=== PATIENT | male | born 1965 | race Caucasian/White ===

== ENCOUNTER 2016-06-16 09:05 | Outpatient (CLI) | payer BC, MEDICAID ==
[~2016-06-16] VITALS: Ht 172.7 cm; Wt 90.7 kg
[2016-06-16] MEDS ORDERED: TRIAMCINOLONE ACET (KENALOG-40) 40 MG/ML 1 ML VIAL ONE (09:11)
[2016-06-16] MEDS ORDERED: BUPIVACAINE 0.25% 30 ML (SENSORCAINE) VIAL ONE (09:11)
[2016-06-16] MEDS ORDERED: BUPIVACAINE 0.5% 30 ML (SENSORCAINE) VIAL ONE (09:11)
[2016-06-16] MEDS ORDERED: LIDOCAINE 1% INJ 20 ML (XYLOCAINE) VIAL ONE (09:11)
--- OUTSIDE RECORDS SUMMARY | 2016-06-16 09:12 | XMS REPORT ---
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 Unknown Non Drug Allergy Dec, Unknown SOCIAL HISTORY No smoking Hx information available PLAN OF CARE VITAL SIGNS Height 65.0 in 2015-12-23 Weight 188.2 lbs 2015-12-23 Heart Rate 82 bpm 2015-12-23 Respiratory Rate 18 2015-12-23 BMI 31.31 kg/m2 2015-12-23 Blood pressure systolic 124 mmHg 2015-12-23 Blood pressure diastolic 82 mmHg 2015-12-23 MEDICATIONS Medication Instructions Dosage Frequency Start Date End Date Duration Status Baclofen 20 mg Orally every 8 hrs 1 tablet with food or milk 8h Dec, 30 day(s) Active PredniSONE 10 mg Orally Once a day 6 tabs x3, 4 tabs x3, 2 tabs x 3, 1 tab x 3 24h Dec, 12 days Active Diclofenac Sodium 50 mg Orally Three times a day 1 tablet 8h Dec, Active Neurontin 300 MG Orally Three times a day 1 tablet 8h Active RESULTS No Results PROCEDURES Procedure Date Ordered Related Diagnosis Body Site Office Visit, Est Pt., Level 3 Dec 23, 2015 IMMUNIZATIONS No Known Immunizations
[2016-06-16 09:21] VITALS: BP 145/102
[2016-06-16 09:43] VITALS: BP 148/111
--- NOTE | 2016-06-16 12:20 | Pain Medicine-Procedure ---
Procedure Pre-Op/Post-Op Diagnosis Diagnosis: Spondylosis without myelopathy, lumbar Indications for Operation Low back and hip pain Attending Surgeon Robert Procedure Date of Service: Jun 16, 2016 Procedure: Fluoroscopic guided left Medial Branch Block of L3 to sacral ala and a sacroiliac joint injections PROCEDURE IN DETAIL: After obtaining informed consent from the patient, the patient's chart was reviewed. The patient was then brought to the procedure room and placed in the prone position. A time out was performed. The back was prepped with antiseptic solution and under fluoroscopic guidance the patient's sacral ala on the left side was identified. 2 mL's of 1% Lidocaine was used to anesthetized the skin over the sacral ala and a 22 gauge 3.5 inch needle was advanced towards the target until bone was contacted. The junction of the superior articular processes and the transverse processes at L3-L5 on the left were then identified and the skin overlying these targets was anesthetized with 1% lidocaine. Next a 22 gauge 3.5 inch needle was inserted through the skin to the level of the lumbar medial branches under radiographic guidance. Next, after negative aspiration, a mixture of 2 mL's Bupivacaine 0.5% and 80 mg Kenalog was injected in 4 equal aliquots. CSF was negative, Paresthesia was negative, Heme was negative. All needles were then flushed with 1% lidocaine and then removed. Attention was then directed to the left sacroiliac joint which was identified under fluoroscopic guidance. The skin overlying the posterior inferior one third of the sacroiliac joint was anesthetized with 1 percent lidocaine and a 22 -gauge 3-1/2 inch needle was inserted and advanced into the joint. Following negative aspiration a total of 40 mg of Kenalog and 2 mL of 0.25 percent bupivacaine was injected. Needle was flushed with lidocaine and removed. Sterile bandage was applied. Patient tolerated the procedures well with no apparent complications. Complications None ARIC NICHOLAS MD Jun 16, 2016 12:20 pm
== END 2016-06-16 09:44 | disposition home or self-care (01) ==
LOC: CARD 09:05
PROVIDERS: ATTEND Pain Medicine Pain Medicine
DX: M47.816 Spondylosis without myelopathy or radiculopathy, lumbar region (principal); M53.3 Sacrococcygeal disorders, not elsewhere classified; Z79.899 Other long term (current) drug therapy
CPT/HCPCS: 27096; 64493; 64494; 64495